=== PATIENT | female | born 1985 | race Two or more races ===

== ENCOUNTER 2024-02-18 21:42 | Emergency (ER) | payer OTHER ==
[~2024-02-18] VITALS: Ht 172.7 cm; Wt 72.6 kg
[2024-02-18] MEDS ORDERED: HYDR26CR2 TP (23:12)
[2024-02-18] MEDS ORDERED: POLY119P PO (23:12)
[2024-02-18 23:24] VITALS: BP 125/83; TEMP 98.6; O2SAT 98
== END 2024-02-18 23:24 | disposition home or self-care (01) ==
LOC: ER 21:48
DX: K64.8 Other hemorrhoids (principal)